=== PATIENT | male | born 1950 | race Asian ===

== ENCOUNTER 2019-04-04 03:41 | Observation (INO) | payer OTHER ==
[~2019-04-04] VITALS: Ht 167.6 cm; Wt 68.0 kg
[2019-04-04 03:50] VITALS: BP_SYST 144
--- NOTE | 2019-04-04 03:50 | NUR ---
Placed in room 4. 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 To gown for exam. Side rails up.
--- NOTE | 2019-04-04 03:54 | NUR ---
PT 68 YO MALE HX OF HTN AND HYPERLIPIDEMIA C/O BILATERAL UPPER EXTREMITY WEAKNESS AND PAIN FROM SHOULDER TO FOREARM SINCE 2200 LAST NIGHT. PT ALSO REPORTS SUDDEN ONSET OF SHORTNESS OF BREATH, CHEST PRESSURE, NAUSEA AND CHILLS AT 0100 THIS MORNING. 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 PT VSS 97% ON ROOM AIR AND AFEBRILE. EKG HAS BEEN OBTAINED AND GIVEN TO DR. KIRBY FOR INTERPRETATION. DENIES ANY VOMITING, RECENT SURGERIES, OR RECENT TRAVEL. WILL CONTINUE TO MONITOR FOR CHANGE OF CONDITION.
--- NOTE | 2019-04-04 03:55 | NUR ---
# 20 gauge angiocath placed to LT AC. Use of asceptic technique. Opsite placed over site. Blood return noted. Blood for lab drawn from site. Flushed with 10 cc of normal saline. No evidence of infiltration noted. Patient tolerated well.
--- NOTE | 2019-04-04 03:57 | NUR ---
ER at bedside examining patient.
[2019-04-04] MEDS ORDERED: ASPIRIN 81 MG TAB.CHEW PO ONE (04:00)
[2019-04-04 04:14] LABS: BASOPHILS % (AUTO) 0.3 % (0.0-2.0); EOSINOPHILS # (AUTO) 0.5 K/uL (0.0-0.4); EOSINOPHILS % (AUTO) 4.4 % (0.0-4.0); HEMATOCRIT 43.3 % (36-54); LYMPHOCYTES # (AUTO) 0.8 K/uL (1.0-5.5); LYMPHOCYTES % (AUTO) 7.6 % (20.5-51.5); MEAN CORPUSCULAR HEMOGLOBIN 32 pg (27-31); MEAN CORPUSCULAR HGB CONC 35 % (32-36); MEAN CORPUSCULAR VOLUME 93 fL (79.0-98.0); MONOCYTES # (AUTO) 0.7 K/uL (0.0-1.0); MONOCYTES % (AUTO) 6.4 % (1.7-9.3); NEUTROPHILS # (AUTO) 8.4 K/uL (1.8-7.7); NEUTROPHILS % (AUTO) 81.3 % (40.0-70.0); PLATELET COUNT (AUTO) 200 K/uL (130-430); RED BLOOD CELL COUNT(AUTO) 4.66 MIL/uL (4.2-6.2); RED CELL DISTRIBUTION WIDTH 13.5 % (9.0-15.0); WHITE BLOOD COUNT (AUTO) 10.3 K/uL (4.8-10.8)
[2019-04-04 04:36] LABS: CALCIUM 9.3 mg/dL (8.4-11.0); CREATININE 0.81 mg/dL (0.55-1.30); POTASSIUM 4.1 mmol/L (3.5-5.1)
[2019-04-04 04:42] LABS: ALBUMIN 3.8 g/dL (3.4-4.8); TOTAL BILIRUBIN 0.8 mg/dL (0.0-1.0)
--- NOTE | 2019-04-04 04:50 | NUR ---
Patient is unable to recall medications he is on at home for his HTN and hyperlipidemia.
--- NOTE | 2019-04-04 05:29 | NUR ---
Patient will be admitted to care of Dr. Barahona. Admitted to telemetry unit. Have been notified patient will be a telemetry hold until further notice. Belongings list completed. Summary report printed. Report will be given at bedside.
[2019-04-04] MEDS ORDERED: NITROGLYCERIN 0.4 MG TAB.SUBL SL ONE (05:30)
--- NOTE | 2019-04-04 06:56 | NUR ---
Pt is sleeping in bed, VSS. Will continue to monitor. MST notified patient will be going to [address]
--- NOTE | 2019-04-04 07:16 | NUR ---
CONSULTATION PAGED REASON FOR CONSULTATION:CHEST PAIN WAS CONSULT CALLED?Y PERSON WHO WAS NOTIFIED:MARTHA CONSULTING PHYSICIAN:ALAN LEWIS KENO DEALER SPECIALTY:CARDIO [employer] PHONE NUMBER:[phone] REQUESTING PHYSICIAN:ODALYS PALMA
--- NOTE | 2019-04-04 07:26 | NUR ---
Transfer to Telemetry via ACLS protocol. Licensed nurse present. IV present no signs or symptoms of infiltration.
--- NOTE | 2019-04-04 07:27 | NUR ---
ADMIT NOTE Received pt from ER to the floor with a diagnosis of chest pain. Admission process initiated. patient oriented to pain management, safety and call light-teach back done.
[2019-04-04 09:11] VITALS: BP_SYST 124
--- NOTE | 2019-04-04 09:48 | NUR ---
Dr. Irene is at bedside with patient.
--- NOTE | 2019-04-04 12:00 | NUR ---
PATIENT IS EATING LUNCH TOLERATED WITHOUT DISTRESS.
[2019-04-04] MEDS ORDERED: LOSA25TA3 PO (12:07)
[2019-04-04] MEDS ORDERED: LIP20 PO (12:07)
[2019-04-04] MEDS ORDERED: TAMS-11 PO (12:07)
[2019-04-04 12:35] VITALS: BP_SYST 112
[2019-04-04] MEDS: ASPIRIN 81 MG TAB.CHEW PO SCH (13:06)
--- NOTE | 2019-04-04 14:11 | NUR ---
PATIENT IS RESTING, NO SIGNS OF DISTRESS NOTED.
[2019-04-04 16:07] VITALS: BP_SYST 118
--- NOTE | 2019-04-04 16:22 | NUR ---
PATIENT LEFT THE HOSPITAL AND CAME BACK. HE WAS INSTRUCTED THIS HIS ACTION WAS INAPPROPRIATE, HE WAS INFORMED THAT THE RISKS OF INJURY OR COULD OCCUR IF THE PATIENT WAS TO LEAVE WITHOUT THE CLEARANCE FROM DOCTORS. HE VERBALIZED UNDERSTANDING.
[2019-04-04 19:50] VITALS: BP_SYST 129
--- NOTE | 2019-04-04 19:50 | NUR ---
INITIAL ASSESSMENT PATIENT IS SITTING ON THE CHAIR AND STABLE. NO SIGNS OR SYMPTOMS OF RESPIRATORY DISTRESS NOTED. PATIENT SUCCESSFULLY DEMONSTRATES USAGE OF CALL LIGHT AT THIS TIME. PLAN OF CARE IS DISCUSSED WITH THE PATIENT. BED IS LOCKED AND AT THE LOWEST POSITION. PATIENT REFUSED BED ALARM DESPITE EDUCATIONAL EFFORTS. WILL CONTINUE TO EDUCATED THROUGHOUT THE SHIFT. FALL AND SAFETY PRECAUTIONS WILL BE PLACED THROUGHOUT THE SHIFT.
[2019-04-04] MEDS: ATORVASTATIN 20 MG TABLET PO SCH (19:57)
[2019-04-04] MEDS ORDERED: SIMVASTATIN 20 MG TABLET PO SCH (21:00)
--- NOTE | 2019-04-04 21:50 | NUR ---
ROUNDING PATIENT IS WATCHING TV AND IS STABLE. NO SIGNS OR SYMPTOMS OF RESPIRATORY DISTRESS NOTED. CALL LIGHT IS WITHIN REACH. BED IS LOCKED, AND AT THE LOWEST POSITION. WILL CONTINUE TO MONITOR THROUGHOUT THE SHIFT.
--- NOTE | 2019-04-04 23:50 | NUR ---
ROUNDING/NPO DISCUSSED NPO STATUS WITH PATIENT AGAIN. PATIENT VERBALIZED THAT HE UNDERSTOOD. PATIENT IS NPO. NPO CONE PLACED AT BEDSIDE TABLE. PATIENT IS STABLE. NO SIGNS OR SYMPTOMS OF RESPIRATORY DISTRESS NOTED. CALL LIGHT IS WITHIN REACH. BED IS LOCKED AND AT THE LOWEST POSITION.
[2019-04-05 00:01] VITALS: BP_SYST 115
--- NOTE | 2019-04-05 01:50 | NUR ---
ROUNDING PATIENT IS SLEEPING IN BED AND STABLE. NO SIGNS OR SYMPTOMS OF RESPIRATORY DISTRESS NOTED. CALL LIGHT IS WITHIN REACH. BED IS LOCKED AND AT THE LOWEST POSITION. WILL CONTINUE TO MONITOR.
[2019-04-05 01:55] LABS: CHOLESTEROL 87 mg/dL (<200); HDL CHOLESTEROL 36 mg/dL (>45); TRIGLYCERIDES 75 mg/dL (30-150)
[2019-04-05 01:56] LABS: LDL CHOLESTEROL 42 mg/dL (<100)
--- NOTE | 2019-04-05 06:11 | NUR ---
CLOSING NOTES PATIENT IS RESTING IN BED AND STABLE. NO SIGNS OR SYMPTOMS OF RESPIRATORY DISTRESS NOTED. CALL LIGHT IS WITHIN REACH. BED IS LOCKED AND AT THE LOWEST POSITION. FALL AND SAFETY PRECAUTIONS HAS BEEN PLACED THROUGHOUT THE SHIFT. WILL CONTINUE TO MONITOR UNTIL SHIFT REPORT IS GIVEN TO AM NURSE AT BEDSIDE.
--- NOTE | 2019-04-05 07:19 | NUR ---
A/OX4. SR ON MONITOR. ON ROOM AIR. MANDARIN AND LUX[place]BOURGISH SPEAKING. ABLE TO USE CALL LIGHT FOR NEEDS. POC IS DISCUSSED WITH THE PATIENT. BED LOCKED AT THE LOWEST POSITION WITH WHEELS LOCKED.
[2019-04-05 07:28] VITALS: BP_SYST 127
[2019-04-05 08:00] VITALS: BP_SYST 127
[2019-04-05] MEDS ORDERED: ENOXAPARIN SODIUM 40 MG/0.4 ML SYRINGE SUBCUT SCH (09:00)
[2019-04-05] MEDS ORDERED: LOSARTAN POTASSIUM 25 MG TABLET PO SCH (09:00)
[2019-04-05] MEDS ORDERED: TAMSULOSIN HCL 0.4 MG CAP PO SCH (09:00)
--- NOTE | 2019-04-05 09:12 | NUR ---
PATIENT TO STRESS TEST.
--- NOTE | 2019-04-05 10:04 | NUR ---
PATIENT HAS RETURNED FROM STRESS TEST. NO SIGNS OF DISTRESS NOTED AT THIS TIME.
[2019-04-05] MEDS: ASPIRIN 81 MG TAB.CHEW PO SCH (10:21)
[2019-04-05] MEDS: ATORVASTATIN 20 MG TABLET PO SCH (10:21)
--- NOTE | 2019-04-05 11:04 | NUR ---
DR. BELL IS INFORMED OF THE RESULTS REGARDING THE STRESS TEST. HE ORDERS THAT PATIENT CAN BE DISCHARGED HOME.
[2019-04-05 11:49] VITALS: BP_SYST 112
[2019-04-05 12:00] VITALS: BP_SYST 112
== END 2019-04-05 13:16 | disposition home or self-care (01) ==
LOC: SED 03:41 → STU 03:50
PROVIDERS: ADMIT Family Medicine; ATTEND Family Medicine
DX: R07.89 Other chest pain (principal); I10 Essential (primary) hypertension; E78.5 Hyperlipidemia, unspecified; N40.0 Benign prostatic hyperplasia without lower urinary tract symptoms
CPT/HCPCS: 36415 ×2; 71045; 80053; 80061; 82550 ×2; 83880; 84484 ×2; 85025; 85379; 93005; 93017; 96372; 99285; G0378 ×2; J1650